=== PATIENT | female | born 1995 | race Caucasian/White ===

== ENCOUNTER 2021-01-21 02:29 | Emergency (ER) | payer OTHER ==
[~2021-01-21] VITALS: Ht 157.5 cm; Wt 54.5 kg
[2021-01-21 04:08] VITALS: BP 111/74
== END 2021-01-21 04:49 | disposition home or self-care (01) ==
LOC: EMS 02:36
DX: R68.84 Jaw pain (principal)
CPT/HCPCS: 99282; 99283